=== PATIENT | female | born 1965 | race Caucasian/White ===

== ENCOUNTER 2017-08-22 13:29 | Emergency (ER) | payer OTHER ==
[~2017-08-22] VITALS: Ht 152.4 cm; Wt 71.2 kg
[2017-08-22] MEDS ORDERED: TOPROL XL50 M1 (13:47)
[2017-08-22] MEDS ORDERED: ESTRACE2 MG (13:47)
== END 2017-08-22 21:50 | disposition home or self-care (01) ==
LOC: ER 13:29
DX: K52.9 Noninfective gastroenteritis and colitis, unspecified (principal); E86.0 Dehydration